=== PATIENT | female | born 1975 | race Caucasian/White ===

== ENCOUNTER 2020-01-21 07:45 | Outpatient (CLI) | payer OTHER | END 2020-01-21 07:56 | disposition home or self-care (01) | LOC: SONOGRAMA 07:45 | PROVIDERS: ATTEND Obstetrics & Gynecology Gynecologic Oncology | DX: D25.9 Leiomyoma of uterus, unspecified (principal) ==

== ENCOUNTER 2020-09-24 07:00 | Inpatient (IN) | payer OTHER ==
[~2020-09-24] VITALS: Ht 157.5 cm; Wt 82.6 kg
[2020-09-24] MEDS ORDERED: NASACORT16.9 ML NASAL (10:45)
[2020-09-24] MEDS ORDERED: COZAAR100 MG PO (10:45)
== END 2020-10-02 18:25 | disposition home or self-care (01) | DRG 743 ==
LOC: O/R 09-30 05:30 → SURH 09-30 07:00 → OB/GYN 09-30 14:23
PROVIDERS: ADMIT Obstetrics & Gynecology Gynecologic Oncology; ATTEND Obstetrics & Gynecology Gynecologic Oncology
PROC: 0UT10ZZ Resection of Left Ovary, Open Approach (ICD-10-PCS; 2020-09-30)
PROC: 0UT60ZZ Resection of Left Fallopian Tube, Open Approach (ICD-10-PCS; 2020-09-30)
PROC: 0UB90ZZ Excision of Uterus, Open Approach (ICD-10-PCS; principal; 2020-09-30 07:00)
DX: D25.9 Leiomyoma of uterus, unspecified (principal); N80.0 Endometriosis of uterus; N83.12 Corpus luteum cyst of left ovary; N83.292 Other ovarian cyst, left side; I10 Essential (primary) hypertension; R19.00 Intra-abdominal and pelvic swelling, mass and lump, unspecified site

== ENCOUNTER 2021-06-09 07:50 | Outpatient (CLI) | payer OTHER ==
[~2021-06-09 07:50] MED LIST: COZAAR100 MG PO; NASACORT16.9 ML NASAL
== END 2021-06-09 08:05 | disposition home or self-care (01) ==
LOC: MAMO-SONO 07:50
PROVIDERS: ATTEND Obstetrics & Gynecology Gynecologic Oncology
DX: M77.32 Calcaneal spur, left foot (principal); M77.31 Calcaneal spur, right foot; N64.89 Other specified disorders of breast; Z12.31 Encounter for screening mammogram for malignant neoplasm of breast